=== PATIENT | female | born 1990 | race Asian ===

== ENCOUNTER → 2016-10-04 | Day surgery (SDC) | payer OTHER ==
[2016-10-01 11:41] VITALS: BMI 29.8
[~2016-10-04] MED LIST: LEVOFLOXACIN 500 MG IVPB 100 ML IVPB ONE; LEVOFLOXACIN 500 MG PREMIX BAG IVPB ONE; MIDAZOLAM HCL 2 MG/2 ML SINGLE DOSE VIAL ONE; ONDANSETRON 4 MG/2 ML VIAL ONE
--- NOTE | 2016-10-04 16:04 | OP ---
Operative Note - Note: Operative Date: 10/04/16 Pre-Operative Diagnosis: left renal stone Operation: left eswl Findings: 12mm left lower pole stone Post-Operative Diagnosis: Same as Pre-op Surgeon: Denilson Alvarez Anesthesia: General Operative Report Dictated: Yes
[2016-10-04 18:15] VITALS: TEMP 98
[2016-10-04 18:34] VITALS: BP 115/72; PULSE 82
--- NOTE | 2016-10-05 13:06 | OP ---
DATE OF OPERATION: 10/04/2016 PREOPERATIVE DIAGNOSIS: Left renal stone. POSTOPERATIVE DIAGNOSIS: Left renal stone. PROCEDURE: Left extracorporeal shock wave lithotripsy. ATTENDING PHYSICIAN: Quique Claudio MD ANESTHESIA: General. DESCRIPTION OF PROCEDURE: The operation went as follows: The patient was brought in the operating room, placed in a supine position on the operating room table. Fluoroscopy and ultrasonography were performed. A 12-mm left lower pole stone was identified. General anesthesia was then administered, as well as Levaquin intravenously. At this point, extracorporeal shock wave lithotripsy was performed under real-time ultrasonography and fluoroscopy; 3000 impulses at 20 joules of power were administered to the stone with excellent fragmentation noted. No complications were noted. The disposition of the patient was to the recovery room. QUIQUE CLAUDOI M.D. /[id number]
== END | disposition home or self-care (01) ==
LOC: JASU-SURG 11:21 → EDSEX 14:00
PROVIDERS: ATTEND Urology
PROC: 0TF4XZZ Fragmentation in Left Kidney Pelvis, External Approach (ICD-10-PCS; principal; 2016-10-04 14:00)
DX: N20.0 Calculus of kidney (principal)
CPT/HCPCS: 84703

== ENCOUNTER 2021-03-17 12:21 | Emergency (ER) | payer OTHER ==
[2021-03-17 12:33] VITALS: BP 130/88; PULSE 88; TEMP 98.2; BMI 33.3
[2021-03-17 14:31] LABS: BASO % 0.3 % (0-2.0); EOS % 0.9 % (0-4.5); HEMATOCRIT 40.6 % (32.4-45.2); HEMOGLOBIN 13.6 GM/dL (10.7-15.3); LYMPH % 31.9 % (8-40); MCH 28.5 pg (25.7-33.7); MCHC 33.6 g/dl (32.0-36.0); MEAN CELL VOLUME 84.8 fl (80-96); MEAN PLT VOLUME 9.6 fl (7.5-11.1); MONO % 5.7 % (3.8-10.2); NEUT % 61.2 % (42.8-82.8); PLATELET COUNT 253 10^3/uL (134-434); RBC 4.79 M/mm3 (3.60-5.2); RDW 14.2 % (11.6-15.6)
[2021-03-17 14:35] LABS: PH,URINE 6.5 (5.0-8.0); URINE APPEARANCE CLEAR; URINE BILIRUBIN NEGATIVE (NEGATIVE); URINE COLOR YELLOW; URINE GLUCOSE (UA) NEGATIVE (NEGATIVE); URINE KETONE NEGATIVE (NEGATIVE); URINE LEUK ESTERASE NEGATIVE (NEGATIVE); URINE NITRITE NEGATIVE (NEGATIVE); URINE PROTEIN NEGATIVE (NEGATIVE); URINE UROBILINOGEN 0.2 mg/dL (0.2-1.0)
[2021-03-17 14:38] LABS: EPI CELLS 10.4 /uL (0-25.1); HYALINE CASTS 0.63 /uL (0-3.1); URINE BACTERIA 704.5 /uL (0-1359); URINE RBC 10.1 /uL (0-23.9); URINE WBC 1.3 /uL (0-25.8)
[2021-03-17] MEDS ORDERED: ACETAMINOPHEN 500 MG TABLET (FP) ONE (14:52)
[2021-03-17] MEDS ORDERED: ACETAMINOPHEN 500 MG TABLET (FP) PO ONE (14:53)
[2021-03-17 14:58] LABS: CALCIUM 9.4 mg/dL (8.5-10.1)
[2021-03-17 14:59] LABS: BLOOD UREA NITROGEN 5.6 mg/dL (7-18)
[2021-03-17 15:02] LABS: CREATININE 0.6 mg/dL (0.55-1.3)
[2021-03-17 15:03] LABS: BILIRUBIN,TOTAL 0.4 mg/dL (0.2-1); TOT PROT 7.6 g/dl (6.4-8.2)
== END 2021-03-17 17:06 ==
LOC: JER 12:21 → JERFT 12:21
DX: O20.0 Threatened abortion (principal)
CPT/HCPCS: 36415; 76817-TC; 80053; 81003; 84702; 84703; 85025; 86850; 86900; 86901; 99284-25

== ENCOUNTER 2021-04-16 10:24 | Day surgery (SDC) | payer OTHER ==
[2021-04-16 11:01] VITALS: BMI 33.3
[2021-04-16 11:56] LABS: BASO % 0.4 % (0-2.0); EOS % 1.8 % (0-4.5); HEMOGLOBIN 13.4 GM/dL (10.7-15.3); LYMPH % 32.9 % (8-40); MCH 28.9 pg (25.7-33.7); MCHC 34.4 g/dl (32.0-36.0); MEAN CELL VOLUME 84.2 fl (80-96); MEAN PLT VOLUME 8.4 fl (7.5-11.1); MONO % 6.4 % (3.8-10.2); NEUT % 58.5 % (42.8-82.8); PLATELET COUNT 287 10^3/uL (134-434); RBC 4.63 M/mm3 (3.60-5.2); WHITE BLOOD COUNT 11.2 K/mm3 (4.0-10.0)
[2021-04-16 12:06] LABS: INR 1.15 (0.83-1.09); PROTHROMBIN TIME (PATIENT) 13.5 SEC (9.7-13.0)
[2021-04-16 12:08] LABS: ACTIVATED PTT 28.8 SECONDS (25.2-36.5)
[2021-04-16 12:15] LABS: ALBUMIN 3.8 g/dl (3.4-5.0); CALCIUM 9.4 mg/dL (8.5-10.1)
[2021-04-16 12:20] LABS: BILIRUBIN,TOTAL 0.2 mg/dL (0.2-1); CREATININE 0.6 mg/dL (0.55-1.3); TOT PROT 7.8 g/dl (6.4-8.2)
[2021-04-16 16:43] VITALS: BP 132/82; PULSE 80; TEMP 97.9
== END 2021-04-16 16:35 | disposition home or self-care (01) ==
LOC: JER 10:24 → JERFT 10:24 → JASUSAT 11:45
PROVIDERS: ATTEND Obstetrics & Gynecology
PROC: 10D17ZZ Extraction of Products of Conception, Retained, Via Natural or Artificial Opening (ICD-10-PCS; principal; 2021-04-16)
DX: O03.4 Incomplete spontaneous abortion without complication (principal)
CPT/HCPCS: 36415; 80053; 84702; 85025; 85610; 85730; 86850; 86900; 86901; 94760; 99285-25; C9803; U0003; U0005

== ENCOUNTER 2021-09-22 19:36 | Emergency (ER) | payer OTHER ==
[2021-09-22 19:40] VITALS: TEMP 98.1; BMI 32.9
[2021-09-22] MEDS ORDERED: morphine CARPU-JECT 2 MG/1 ML DISP.SYRIN IVPUSH ONE ×2 (19:50→21:55)
[2021-09-22] MEDS ORDERED: ACETAMINOPHEN 1000 MG/100 ML BAG IVPB ONE (20:03)
[2021-09-22] MEDS ORDERED: ACETAMINOPHEN INJECTION 100 ML IVPB ONE (20:05)
[2021-09-22] MEDS ORDERED: OXYTOCIN 20 UNITS in 0.9% NS 20 UNIT/1,000 ML INFUS.BAG IV SCH (20:15)
[2021-09-22 20:22] LABS: BASO % 0.3 % (0-2.0); EOS % 1.3 % (0-4.5); HEMATOCRIT 34.6 % (32.4-45.2); HEMOGLOBIN 11.7 GM/dL (10.7-15.3); LYMPH % 19.9 % (8-40); MCH 28.3 pg (25.7-33.7); MCHC 33.9 g/dl (32.0-36.0); MEAN CELL VOLUME 83.6 fl (80-96); MEAN PLT VOLUME 8.4 fl (7.5-11.1); MONO % 5.5 % (3.8-10.2); PLATELET COUNT 223 10^3/uL (134-434); RBC 4.13 M/mm3 (3.60-5.2); RDW 14.1 % (11.6-15.6); WHITE BLOOD COUNT 15.6 K/mm3 (4.0-10.0)
[2021-09-22] MEDS ORDERED: ONDANSETRON 4 MG/2 ML VIAL ONE (20:26)
[2021-09-22] MEDS ORDERED: ONDANSETRON 4 MG/2 ML VIAL IVPB ONE (20:27)
[2021-09-22 20:43] LABS: ACTIVATED PTT 30.5 SECONDS (25.2-36.5); INR 1.14 (0.83-1.09); PROTHROMBIN TIME (PATIENT) 13.1 SEC (9.7-13.0)
[2021-09-22 20:50] LABS: BLOOD UREA NITROGEN 4.6 mg/dL (7-18); CALCIUM 9.6 mg/dL (8.5-10.1)
[2021-09-22 20:51] LABS: ALBUMIN 3.8 g/dl (3.4-5.0)
[2021-09-22 20:54] LABS: CREATININE 0.6 mg/dL (0.55-1.3)
[2021-09-22 20:55] LABS: BILIRUBIN,TOTAL 0.3 mg/dL (0.2-1)
[2021-09-22] MEDS ORDERED: ceFAZolin 2 GRAM PREMIX BAG IVPB ONE (22:12)
[2021-09-22] MEDS ORDERED: MISOPROSTOL 200 MCG TABLET PO ONE (22:12)
[2021-09-22] MEDS ORDERED: DOXYCYCLINE HYCLATE 100 MG CAPSULE PO ONE ×2 (22:13→22:21)
[2021-09-22] MEDS ORDERED: KETOROLAC TROMETHAMINE 30 MG/1 ML VIAL IVPUSH ONE (22:14)
[2021-09-22] MEDS ORDERED: KETOROLAC TROMETHAMINE 60 MG/2 ML VIAL IM ONE (22:19)
[2021-09-22] MEDS ORDERED: KETOROLAC TROMETHAMINE 30 MG/1 ML VIAL ONE (22:21)
[2021-09-22] MEDS ORDERED: CEFAZOLIN 2 GM in DEXTROSE 5%-WATER - 100 ML IVPB ONE (22:30)
[2021-09-22 23:19] LABS: BASO % 0.2 % (0-2.0); EOS % 1.1 % (0-4.5); HEMATOCRIT 33.9 % (32.4-45.2); HEMOGLOBIN 11.2 GM/dL (10.7-15.3); MCH 27.8 pg (25.7-33.7); MCHC 33.1 g/dl (32.0-36.0); MEAN PLT VOLUME 8.7 fl (7.5-11.1); MONO % 4.3 % (3.8-10.2); NEUT % 74.4 % (42.8-82.8); PLATELET COUNT 222 10^3/uL (134-434); RBC 4.04 M/mm3 (3.60-5.2); WHITE BLOOD COUNT 16.8 K/mm3 (4.0-10.0)
[2021-09-23 01:05] VITALS: BP 116/66; PULSE 86
== END 2021-09-23 01:16 | disposition home or self-care (01) ==
LOC: JER 19:36
PROC: 3E0333Z Introduction of Anti-inflammatory into Peripheral Vein, Percutaneous Approach (ICD-10-PCS; principal; 2021-09-22)
PROC: 3E03329 Introduction of Other Anti-infective into Peripheral Vein, Percutaneous Approach (ICD-10-PCS; 2021-09-22)
PROC: 3E0333Z Introduction of Anti-inflammatory into Peripheral Vein, Percutaneous Approach (ICD-10-PCS; 2021-09-22)
PROC: 3E033NZ Introduction of Analgesics, Hypnotics, Sedatives into Peripheral Vein, Percutaneous Approach (ICD-10-PCS; 2021-09-22)
PROC: 3E033NZ Introduction of Analgesics, Hypnotics, Sedatives into Peripheral Vein, Percutaneous Approach (ICD-10-PCS; 2021-09-22)
PROC: 3E033GC Introduction of Other Therapeutic Substance into Peripheral Vein, Percutaneous Approach (ICD-10-PCS; 2021-09-22)
DX: O03.4 Incomplete spontaneous abortion without complication (principal)
CPT/HCPCS: 36415; 76856-TC; 80053; 85025; 85610; 85730; 86850; 86900; 86901; 88305-TC; 99284-25; C9803-CS; U0003; U0005

== ENCOUNTER 2021-10-01 04:08 | Day surgery (SDC) | payer OTHER ==
[2021-10-01 12:36] VITALS: BMI 32.5
[2021-10-01] MEDS ORDERED: FENTANYL CITRATE/PF 50 MCG/ML VIAL ONE ×2 (14:16→14:21)
[2021-10-01] MEDS ORDERED: MIDAZOLAM HCL 2 MG/2 ML SINGLE DOSE VIAL ONE (14:16)
[2021-10-01] MEDS ORDERED: PROPOFOL 20 ML ONE (14:21)
[2021-10-01] MEDS ORDERED: ceFAZolin SODIUM 1 GM VIAL IVPB ONE (14:24)
[2021-10-01] MEDS ORDERED: ceFAZolin SODIUM 1 GM VIAL ONE (14:25)
[2021-10-01] MEDS ORDERED: KETOROLAC TROMETHAMINE 30 MG/1 ML VIAL ONE (14:30)
[2021-10-01] MEDS ORDERED: DEXAMETHASONE SOD PHOSPHATE 4 MG/1 ML VIAL ONE (14:30)
[2021-10-01] MEDS ORDERED: ONDANSETRON 4 MG/2 ML VIAL IVPUSH PRN (14:42)
[2021-10-01] MEDS ORDERED: oxyCODONE HCL 5 MG TABLET PO PRN (14:42)
[2021-10-01] MEDS ORDERED: ACETAMINOPHEN 1000 MG/100 ML BAG IVPB PRN (14:43)
[2021-10-01] MEDS ORDERED: LACTATED RINGERS SOLUTION 1,000 ML IV SCH (14:45)
[2021-10-01] MEDS ORDERED: ONDANSETRON 4 MG/2 ML VIAL ONE (15:41)
[2021-10-01 16:34] VITALS: TEMP 97.8
[2021-10-01 18:08] VITALS: BP 120/70; PULSE 78
== END 2021-10-01 17:30 | disposition home or self-care (01) ==
LOC: JASU-SURG 04:08
PROVIDERS: ATTEND Obstetrics & Gynecology
PROC: 10D17ZZ Extraction of Products of Conception, Retained, Via Natural or Artificial Opening (ICD-10-PCS; principal; 2021-10-01 14:00)
DX: O03.4 Incomplete spontaneous abortion without complication (principal)
CPT/HCPCS: 88305-TC; 94760

== ENCOUNTER 2023-10-05 19:03 | Emergency (ER) | payer OTHER ==
[2023-10-05 19:10] VITALS: BP 126/81; PULSE 112; RESP 18; TEMP 98.8; BMI 33.2
[2023-10-05 20:50] LABS: BASO % 0.2 % (0-2.0); EOS % 1.3 % (0-4.5); HEMATOCRIT 38.4 % (32.4-45.2); HEMOGLOBIN 12.9 GM/dL (10.7-15.3); LYMPH % 26.5 % (8-40); MCH 28.2 pg (25.7-33.7); MCHC 33.6 g/dl (32.0-36.0); MEAN PLT VOLUME 8.2 fl (7.5-11.1); MONO % 5.4 % (3.8-10.2); NEUT % 66.6 % (42.8-82.8); PLATELET COUNT 232 10^3/uL (134-434); RBC 4.57 M/mm3 (3.60-5.2); RDW 14.1 % (11.6-15.6); WHITE BLOOD COUNT 13.7 K/mm3 (4.0-10.0)
[2023-10-05 20:55] LABS: EPI CELLS 25 /uL (0-25.1); HYALINE CASTS 1 /uL (0-3.1); PH,URINE 6.5 (5.0-8.0); URINE APPEARANCE CLOUDY; URINE BACTERIA 2686 /uL (0-1359); URINE BILIRUBIN NEGATIVE (NEGATIVE); URINE COLOR YELLOW; URINE GLUCOSE (UA) NEGATIVE (NEGATIVE); URINE KETONE NEGATIVE (NEGATIVE); URINE LEUK ESTERASE NEGATIVE (NEGATIVE); URINE NITRITE NEGATIVE (NEGATIVE); URINE PROTEIN NEGATIVE (NEGATIVE); URINE RBC 21 /uL (0-23.9); URINE UROBILINOGEN 0.2 mg/dL (0.2-1.0); URINE WBC 40 /uL (0-25.8)
[2023-10-05 20:57] LABS: INR 1.13 (0.83-1.09); PROTHROMBIN TIME (PATIENT) 12.7 SEC (9.7-13.0)
[2023-10-05 21:00] LABS: ACTIVATED PTT 31.5 SECONDS (25.2-36.5)
[2023-10-05] MEDS ORDERED: CEPHALEXIN MONOHYDRATE 500 MG CAPSULE (UD) ONE (22:24)
[2023-10-05] MEDS: CEPHALEXIN MONOHYDRATE 500 MG CAPSULE (UD) PO ONE (22:26)
== END 2023-10-05 22:26 | disposition home or self-care (01) ==
LOC: JER 19:03
DX: O20.9 Hemorrhage in early pregnancy, unspecified (principal); O23.11 Infections of bladder in pregnancy, first trimester; N30.00 Acute cystitis without hematuria; Z3A.09 9 weeks gestation of pregnancy
CPT/HCPCS: 36415; 76817-TC; 81003; 84702; 85025; 85610; 85730; 86850; 86900; 86901; 99284-25

== ENCOUNTER 2023-11-01 04:15 | Day surgery (SDC) | payer OTHER ==
[2023-10-27 16:54] VITALS: BMI 32.0
[2023-11-01] MEDS ORDERED: SODIUM CHLORIDE 0.9% P/F 10 ML VIAL IJ ONE (09:42)
[2023-11-01] MEDS ORDERED: ceFAZolin SODIUM 1 GM VIAL ONE (09:42)
[2023-11-01] MEDS ORDERED: PHENYLEPHRINE HCL 10 MG/1 ML SINGLE DOSE VIAL ONE (09:42)
[2023-11-01] MEDS ORDERED: IBUPROFEN 800 MG/8 ML IJ IVPB PRN (09:43)
[2023-11-01] MEDS ORDERED: IBUPROFEN 600 MG TABLET (FP) PO PRN (09:43)
[2023-11-01] MEDS ORDERED: oxyCODONE HCL 5 MG TABLET PO PRN (09:43)
[2023-11-01] MEDS ORDERED: ELECTROLYTE-148 SOLN 1,000 ML IV SCH (09:45)
[2023-11-01] MEDS: ceFAZolin SODIUM 1 GM VIAL IVPB ONE (09:55)
[2023-11-01] MEDS ORDERED: ONDANSETRON 4 MG/2 ML VIAL ONE ×2 (10:35→12:03)
[2023-11-01] MEDS: ONDANSETRON 4 MG/2 ML VIAL IVPUSH PRN (12:04)
[2023-11-01] MEDS ORDERED: PROMETHAZINE HCL 25 MG/1 ML VIAL IVPB PRN (12:08)
[2023-11-01] MEDS ORDERED: ONDANSETRON 4 MG/2 ML VIAL IVPUSH PRN (12:08)
[2023-11-01] MEDS: LACTATED RINGERS SOLUTION 1,000 ML IV SCH (13:06)
[2023-11-01 13:19] VITALS: RESP 20; TEMP 97.8
[2023-11-01 17:16] VITALS: BP 116/74; PULSE 86
== END 2023-11-01 15:00 | disposition home or self-care (01) ==
LOC: JASU-SURG 04:15
PROVIDERS: ATTEND Obstetrics & Gynecology
PROC: 0UVC7ZZ Restriction of Cervix, Via Natural or Artificial Opening (ICD-10-PCS; principal; 2023-11-01 10:00)
DX: O34.31 Maternal care for cervical incompetence, first trimester (principal); Z3A.13 13 weeks gestation of pregnancy
CPT/HCPCS: 82962; 94760

== ENCOUNTER 2024-04-09 21:04 | Inpatient (IN) | payer OTHER ==
[2024-04-09] MEDS ORDERED: AMPICILLIN SODIUM 2 GM VIAL ONE (21:44)
[2024-04-09] MEDS: AMPICILLIN - 2 GM in SODIUM CHLORIDE 100 ML IVPB ONE (22:00)
[2024-04-09] MEDS: LACTATED RINGERS SOLUTION 1,000 ML IV SCH (22:00)
[2024-04-09 22:15] VITALS: BMI 35.6
[2024-04-09 22:39] LABS: BASO % 0.4 % (0-2.0); EOS % 0.6 % (0-4.5); HEMATOCRIT 37.4 % (32.4-45.2); HEMOGLOBIN 12.7 GM/dL (10.7-15.3); LYMPH % 20.6 % (8-40); MCH 28.3 pg (25.7-33.7); MCHC 33.9 g/dl (32.0-36.0); MEAN CELL VOLUME 83.6 fl (80-96); MEAN PLT VOLUME 9.1 fl (7.5-11.1); MONO % 7.2 % (3.8-10.2); NEUT % 71.2 % (42.8-82.8); PLATELET COUNT 195 10^3/uL (134-434); RBC 4.48 M/mm3 (3.60-5.2); RDW 14.9 % (11.6-15.6); WHITE BLOOD COUNT 13.1 K/mm3 (4.0-10.0)
[2024-04-09 22:46] LABS: INR 1.14 (0.83-1.09); PROTHROMBIN TIME (PATIENT) 12.8 SEC (9.7-13.0)
[2024-04-09 22:49] LABS: ACTIVATED PTT 26.9 SECONDS (25.2-36.5)
[2024-04-09] MEDS: ELECTROLYTE-148 SOLN 1,000 ML IV SCH (22:58)
[2024-04-09] MEDS: ELECTROLYTE-148 SOLN 500 ML IV ONE (22:59)
[2024-04-09 23:00] LABS: POTASSIUM 3.5 mmol/L (3.5-5.1)
[2024-04-09 23:01] LABS: CALCIUM 9.6 mg/dL (8.5-10.1)
[2024-04-09 23:02] LABS: ALBUMIN 2.8 g/dl (3.4-5.0); BLOOD UREA NITROGEN 10.4 mg/dL (7-18)
[2024-04-09 23:04] LABS: CREATININE 0.6 mg/dL (0.55-1.3)
[2024-04-09] MEDS ORDERED: PROMETHAZINE HCL 25 MG/1 ML VIAL ONE (23:05)
[2024-04-09] MEDS ORDERED: BUTORPHANOL TARTRATE 2 MG/ML VIAL ONE (23:05)
[2024-04-09 23:07] LABS: BILIRUBIN,TOTAL 0.3 mg/dL (0.2-1); TOT PROT 6.5 g/dl (6.4-8.2)
[2024-04-09] MEDS: PROMETHAZINE HCL 25 MG/1 ML VIAL IVPB ONE (23:29)
[2024-04-09] MEDS: BUTORPHANOL TARTRATE 1 MG/ML VIAL IVPB ONE (23:29)
[2024-04-09 23:57] LABS: HIV INTERPRETATION NEGATIVE (NEGATIVE)
[2024-04-10] MEDS ORDERED: AMPICILLIN SODIUM 1 GM VIAL ONE ×2 (01:49→05:21)
[2024-04-10] MEDS ORDERED: FENTANYL/BUPIVACAINE/NS/PF - PCEA - 50 ML DISP.SYRIN EP ONE ×2 (01:50→08:38)
[2024-04-10] MEDS: AMPICILLIN - 1 GM in SODIUM CHLORIDE 100 ML IVPB SCH (02:00)
[2024-04-10] MEDS ORDERED: BUPIVACAINE HCL/PF 0.25% (2.5MG/ML) 10 ML VIAL ONE (02:07)
[2024-04-10] MEDS ORDERED: FENTANYL CITRATE/PF 50 MCG/ML VIAL ONE (02:07)
[2024-04-10] MEDS ORDERED: NALOXONE HCL 0.4 MG/ML VIAL IVPUSH PRN (02:28)
[2024-04-10] MEDS: FENTANYL/BUPIVACAINE/NS/PF - PCEA - 50 ML DISP.SYRIN EP SCH (02:30)
[2024-04-10] MEDS: SODIUM CHLORIDE 1,000 ML IV SCH (03:00)
[2024-04-10] MEDS ORDERED: LIDOCAINE HCL 1% PRESERVATIVE FREE - 30ML VIAL ONE (03:09)
[2024-04-10] MEDS ORDERED: OXYTOCIN 30 UNITS in 0.9% NS 30 UNIT/500 ML INFUS.BAG IVPB ONE (07:35)
[2024-04-10] MEDS: OXYTOCIN 30 UNITS in 0.9% NS 30 UNIT/500 ML INFUS.BAG IVPB SCH (07:40)
[2024-04-10] MEDS ORDERED: ELECTROLYTE-148 SOLN 1,000 ML IV SCH (07:45)
[2024-04-10] MEDS: amLODIPine BESYLATE 10 MG TABLET (FP) PO SCH (08:05)
[2024-04-10] MEDS ORDERED: OXYTOCIN 20 UNITS in 0.9% NS 20 UNIT/1,000 ML INFUS.BAG IV ONE (09:53)
[2024-04-10] MEDS: OXYTOCIN 20 UNITS in 0.9% NS 20 UNIT/1,000 ML INFUS.BAG IV SCH (10:30)
[2024-04-10 11:17] LABS: CORD BASE EXCESS -6.9 mmol/L (0-2); CORD HCO3 21.5 mmHg (20-29); CORD PCO2 54.9 mmHg (30-78); CORD pH 7.211 (7.14-7.44)
[2024-04-10 11:24] LABS: CORD HCO3 19.3 mmHg (20-29); CORD PCO2 41.3 mmHg (30-78); CORD pH 7.287 (7.14-7.44)
[2024-04-10] MEDS ORDERED: METHYLERGONOVINE MALEATE 0.2 MG/1 ML AMP IM PRN (11:31)
[2024-04-10] MEDS ORDERED: BENZOCAINE 28 GM HEMORRHOIDAL OINTMENT TP PRN (11:31)
[2024-04-10] MEDS ORDERED: BENZOCAINE 20% 57 GM BOTTLE TP PRN (11:31)
[2024-04-10] MEDS ORDERED: WITCH HAZEL 50% (TUCKS) 40 PAD/JAR PAD TP PRN (11:31)
[2024-04-10] MEDS: ACETAMINOPHEN 325 MG TABLET (FP) PO PRN (14:29)
[2024-04-10] MEDS: IBUPROFEN 600 MG TABLET (FP) PO PRN (21:17)
[2024-04-10] MEDS: SENNOSIDES/DOCUSATE COMBO (SENNA PLUS) TABLET (UD) PO PRN (21:17)
[2024-04-11 05:15] VITALS: RESP 18
[2024-04-11] MEDS: BISACODYL 10 MG SUPP.RECT RC PRN (07:48)
[2024-04-11 09:07] LABS: BASO % 0.2 % (0-2.0); EOS % 0.7 % (0-4.5); HEMATOCRIT 29.8 % (32.4-45.2); LYMPH % 23.2 % (8-40); MCH 28.5 pg (25.7-33.7); MCHC 33.5 g/dl (32.0-36.0); MEAN PLT VOLUME 8.7 fl (7.5-11.1); MONO % 6.2 % (3.8-10.2); NEUT % 69.7 % (42.8-82.8); PLATELET COUNT 137 10^3/uL (134-434); RBC 3.51 M/mm3 (3.60-5.2); RDW 15.6 % (11.6-15.6); WHITE BLOOD COUNT 14.1 K/mm3 (4.0-10.0)
[2024-04-11] MEDS ORDERED: NIFEdipine E.R. 30 MG TABLET PO SCH (10:00)
[2024-04-11] MEDS: FERROUS SO4 325 MG TABLET (FP) PO SCH (10:30)
[2024-04-11] MEDS: amLODIPine BESYLATE 5 MG TABLET (FP) PO SCH (10:30)
[2024-04-12 09:23] VITALS: BP 143/96; PULSE 115; TEMP 97.7
== END 2024-04-12 14:25 | disposition home or self-care (01) | DRG 805 ==
LOC: JLDR 21:04 → J3W 04-10 13:20
PROVIDERS: ADMIT Obstetrics & Gynecology; ATTEND Obstetrics & Gynecology
PROC: 10D07Z6 Extraction of Products of Conception, Vacuum, Via Natural or Artificial Opening (ICD-10-PCS; principal; 2024-04-10)
PROC: 0KQM0ZZ Repair Perineum Muscle, Open Approach (ICD-10-PCS; 2024-04-10)
PROC: 0W8NXZZ Division of Female Perineum, External Approach (ICD-10-PCS; 2024-04-10)
DX: O60.14X0 Preterm labor third trimester with preterm delivery third trimester, not applicable or unspecified (principal); O34.33 Maternal care for cervical incompetence, third trimester; Z37.0 Single live birth; O10.92 Unspecified pre-existing hypertension complicating childbirth; O70.1 Second degree perineal laceration during delivery; O99.284 Endocrine, nutritional and metabolic diseases complicating childbirth; E28.2 Polycystic ovarian syndrome; O99.213 Obesity complicating pregnancy, third trimester; O24.424 Gestational diabetes mellitus in childbirth, insulin controlled; Z3A.36 36 weeks gestation of pregnancy
CPT/HCPCS: 36415; 36600; 59409; 80053; 82803; 82962; 85025; 85610; 85730; 86780; 86850; 86900; 86901; 87389